=== PATIENT | male | born 1930 | race Caucasian/White ===

== ENCOUNTER 2016-07-20 16:53 | Inpatient (IN) | payer OTHER ==
[2016-07-19 20:35] VITALS: BP 197/81
[~2016-07-20] VITALS: Ht 175.3 cm; Wt 93.8 kg
--- NOTE | ~2016-07-20 | 2DMMODE ---
[facility] [address] [place] [address] 2 D/M-MODE ECHOCARDIOGRAM Name: TAJ MARTINEZ Room #: 422-P [facility] M.R.#: [id number] Admission: 07/20/16 Attend Phys: Anthony Huston Discharge: Date of : 34 Date of Service: 07/21/16 1000 Report #: [id number] THIS REPORT FOR: //name// Transthoracic Echocardiography Ordering physician: Pallavi Coello Referring physician: Anuel Shaffer [employer] Professor Of [employer]ostatistics: Indications/History: SOA. BP: 111 / HR: 71bpm Height: 69in Weight: 205.6lb 70 Study data: M-mode, complete 2D, complete spectral Doppler, and color Doppler. Location: Bedside. Routine. Image quality was adequate. The study was technically limited due to poor patient compliance, restricted patient mobility, and body habitus. No measurements were obtainable.The parasternal window was low, thus no M-mode measurements were recorded. Intravenous contrast (Definity) was administered. 2D measurements Normal Normal LVID ED 36-57 IVS ED 6-11 LVID ES 23-40 LVPW ED 6-11 LA volume index 16-28 AoRoot diam ED 21-37 LVOT diameter 18-23 Findings: Left ventricle: The cavity size was normal. Wall thickness was normal. Systolic function was normal. The estimated ejection fraction was in the range of 60% to 65%. Wall motion was normal. Right ventricle: The cavity size was normal. Systolic function was normal. Right atrium: The atrium was normal in size. Left atrium: The atrium was normal in size. Aortic valve: Structurally normal valve. Doppler: [address] [address] 2 D/M-MODE ECHOCARDIOGRAM Name: TAJ MARTINEZ Room #: 422-P [facility] IN M.R.#: [id number] Admission: 07/20/16 Attend Phys: Anthony Huston Discharge: Date of : 34 Date of Service: 07/21/16 1000 Report #: [id number] There was no stenosis. No regurgitation. Peak velocity: 132cm/s (S). Mitral valve: Structurally normal valve. Doppler: There was no evidence for stenosis. No regurgitation. Peak E-wave velocity: 82.2cm/s. Peak gradient: 2.7mm Hg (D). Peak A-wave velocity: 78.4cm/s. Tricuspid valve: Structurally normal valve. Doppler: There was no evidence for stenosis. Trivial regurgitation. Regurgitant peak velocity: 266.4cm/s. Peak RV-RA gradient: 28mm Hg (S). Pulmonic valve: Structurally normal valve. Doppler: There was no evidence for stenosis. No regurgitation. Pericardium: There was no pericardial effusion. Aorta: Aortic root: The aortic root was normal in size. Pulmonary artery: Systolic pressure was estimated to be 28mm Hg. Plus the right atrial pressure. Diastolic function: Doppler parameters are consistent with abnormal left ventricular relaxation (grade 1 diastolic dysfunction). Systemic veins: Inferior vena cava: Not visualized. The vessel was normal in size; the respirophasic diameter changes were in the normal range (= 50%). Conclusions 1. Left ventricle: Systolic function was normal. The estimated ejection fraction was in the range of 60% to 65%. Wall motion was normal. 2. Aortic valve: Structurally normal valve. There was no stenosis. No regurgitation. 3. Mitral valve: Structurally normal valve. No regurgitation. 4. Pulmonary arteries: Systolic pressure was estimated to be 28mm Hg. Plus the right atrial pressure. 5. Pericardium, extracardiac: There was no pericardial effusion. <ELECTRONICALLY SIGNED> By: Karri Abraham MD, FACC 07/21/16 1204 1000 1204 Karri Abraham MD, FACC /jrei
[2016-07-20 21:00] LABS: ABG SAMPLE TYPE ARTERIAL; BE(vivo) -2.3 mmol/L (-2 to +3); HCO3 23.9 mmol/L (22.0-26.0); LACTATE 0.74 mmol/L (0.5-2.0); O2(CT) 17.1 mL/dL (15.0-23.0); O2Hb 98.2 % (92.0-98.0); PCO2 46.7 mmHg (35.0-45.0); PO2 146.9 mmHg (80.0-100.0); STICK SITE R.RADIAL; pH 7.327 (7.360-7.450); sO2 98.7 % (92.0-98.0); tCO2 25.3 mmol/L (24.0-30.0)
[2016-07-20 21:41] LABS: ALBUMIN 3.5 g/dL (3.4-5.0); CALCIUM 8.9 mg/dL (8.5-10.1); CREATININE 0.9 mg/dL (0.6-1.3); POTASSIUM 5.1 mmol/L (3.5-5.1); TOTAL BILIRUBIN 0.3 mg/dL (<0.1-1.0); TOTAL PROTEIN 6.8 g/dL (6.4-8.2)
[2016-07-20 22:16] LABS: HEMATOCRIT 37.3 % (42.0-52.0); HEMOGLOBIN 11.9 gm/dL (14.0-18.0); MCH 28.7 pg (26.0-34.0); MCV 89.9 fL (80.0-100.0); RBC 4.16 mil/uL (4.50-6.00); RDW 15.1 % (10.5-14.5); WBC 6.4 thou/uL (4.0-11.0)
[2016-07-20] MEDS ORDERED: ARICEPT 5 MG TAB5 MG PO (23:25)
[2016-07-20] MEDS ORDERED: ASPIR 8181 MG PO (23:27)
[2016-07-20] MEDS ORDERED: DONEPEZIL HCL10 MG PO (23:28)
[2016-07-20] MEDS ORDERED: DICLOFENAC SODI75 MG PO (23:28)
[2016-07-20] MEDS ORDERED: LEXAPRO 10 MG T10 M1 PO (23:30)
[2016-07-20] MEDS ORDERED: SEROQUEL 25 MG25 M1 PO (23:31)
[2016-07-20] MEDS ORDERED: NAMENDA 10 MG T10 MG PO (23:33)
[2016-07-20] MEDS ORDERED: VITAMIN E400 UNIT PO (23:42)
[2016-07-20] MEDS ORDERED: TYLENOL325 MG PO (23:42)
[2016-07-20] MEDS ORDERED: CEREFOLIN NAC1 EAC1 PO (23:43)
[2016-07-21] VITALS (7 sets, daily range): BP systolic 111–186; BP diastolic 65–146
[2016-07-21 02:02] LABS: URINE BILIRUBIN NEGATIVE (Negative); URINE BLOOD TRACE (Negative); URINE COLOR YELLOW; URINE GLUCOSE-RANDOM* NEGATIVE (Negative); URINE KETONES NEGATIVE (Negative); URINE LEUKOCYTES-REFLEX NEGATIVE (Negative); URINE PROTEIN (DIPSTICK) NEGATIVE (Negative); URINE SPECIFIC GRAVITY 1.025 (1.003-1.035); URINE UROBILINOGEN 0.2 E.U./dl (0.2-1.0)
[2016-07-21 04:47] LABS: HEMATOCRIT 32.7 % (42.0-52.0); MCH 29.4 pg (26.0-34.0); MCHC 33.5 % (28.0-37.0); MCV 87.7 fL (80.0-100.0); RBC 3.73 mil/uL (4.50-6.00); RDW 15.1 % (10.5-14.5); WBC 6.6 thou/uL (4.0-11.0)
[2016-07-21 05:12] LABS: ALBUMIN 3.2 g/dL (3.4-5.0); ALKALINE PHOSPHATASE 117 U/L (46-116); ANION GAP 6 mmol/L (7-16); BUN 32 mg/dL (7-18); CALCIUM 8.8 mg/dL (8.5-10.1); CHLORIDE 106 mmol/L (98-107); CO2 28 mmol/L (21-32); CREATININE 0.9 mg/dL (0.6-1.3); GLUCOSE 77 mg/dL (70-99); NT-PRO BRAIN NAT PEPTIDE 172 pg/mL (<300); SGOT 14 U/L (15-37); SGPT 16 U/L (30-65); SODIUM 140 mmol/L (136-145); TOTAL BILIRUBIN 0.4 mg/dL (<0.1-1.0); TOTAL PROTEIN 6.2 g/dL (6.4-8.2); TROPONIN-I < 0.04 ng/mL (<0.04-0.07)
[2016-07-21 11:13] LABS: TSH 4.57 uIU/mL (0.450-4.500)
[2016-07-22 04:30] VITALS: BP 114/82
[2016-07-22 05:14] LABS: HEMATOCRIT 31.5 % (42.0-52.0); HEMOGLOBIN 10.6 gm/dL (14.0-18.0); MCH 29.5 pg (26.0-34.0); MCHC 33.7 % (28.0-37.0); MCV 87.6 fL (80.0-100.0); RBC 3.6 mil/uL (4.50-6.00); RDW 14.9 % (10.5-14.5); WBC 5.7 thou/uL (4.0-11.0)
[2016-07-22 05:28] LABS: ALBUMIN 3.1 g/dL (3.4-5.0); CALCIUM 8.8 mg/dL (8.5-10.1); CREATININE 1.2 mg/dL (0.6-1.3); PHOSPHORUS 3.9 mg/dL (2.5-4.9); POTASSIUM 4.9 mmol/L (3.5-5.1)
[2016-07-22 07:51] VITALS: BP 152/73
[2016-07-22 16:03] VITALS: BP 146/76
[2016-07-22 20:00] VITALS: BP 164/112
[2016-07-22 21:20] VITALS: BP 160/57
[2016-07-23 04:00] VITALS: BP 167/77
[2016-07-23 04:53] LABS: HEMOGLOBIN 10.1 gm/dL (14.0-18.0); MCH 29.5 pg (26.0-34.0); MCHC 33.7 % (28.0-37.0); MCV 87.4 fL (80.0-100.0); RBC 3.43 mil/uL (4.50-6.00); RDW 14.5 % (10.5-14.5); WBC 5.3 thou/uL (4.0-11.0)
[2016-07-23 05:11] LABS: CALCIUM 8.7 mg/dL (8.5-10.1); CREATININE 1.4 mg/dL (0.6-1.3); PHOSPHORUS 4.2 mg/dL (2.5-4.9); POTASSIUM 4.5 mmol/L (3.5-5.1)
[2016-07-23 07:25] VITALS: BP 160/67
[2016-07-23 16:06] VITALS: BP 170/83
[2016-07-24 04:00] VITALS: BP 215/93
[2016-07-24 05:53] VITALS: BP 162/81
[2016-07-24 08:31] VITALS: BP 135/75
[2016-07-24 13:00] LABS: ABG SAMPLE TYPE ARTERIAL; BE(vivo) 2.3 mmol/L (-2 to +3); HCO3 26.6 mmol/L (22.0-26.0); LACTATE 1.03 mmol/L (0.5-2.0); O2(CT) 16.1 mL/dL (15.0-23.0); O2Hb 96.3 % (92.0-98.0); PCO2 40.4 mmHg (35.0-45.0); PO2 93.2 mmHg (80.0-100.0); STICK SITE R.RADIAL; pH 7.437 (7.360-7.450); sO2 97.4 % (92.0-98.0); tCO2 27.9 mmol/L (24.0-30.0)
[2016-07-24 16:11] VITALS: BP 140/84
[2016-07-24 20:00] VITALS: BP 157/70
[2016-07-25 03:37] LABS: URINE BILIRUBIN NEGATIVE (Negative); URINE BLOOD NEGATIVE (Negative); URINE COLOR YELLOW; URINE GLUCOSE-RANDOM* NEGATIVE (Negative); URINE KETONES NEGATIVE (Negative); URINE LEUKOCYTES-REFLEX NEGATIVE (Negative); URINE PROTEIN (DIPSTICK) NEGATIVE (Negative); URINE UROBILINOGEN 0.2 E.U./dl (0.2-1.0)
[2016-07-25 04:42] VITALS: BP 131/42
[2016-07-25 06:53] LABS: HEMATOCRIT 34.1 % (42.0-52.0); HEMOGLOBIN 11.3 gm/dL (14.0-18.0); MCH 29.1 pg (26.0-34.0); MCHC 33.1 % (28.0-37.0); MCV 87.9 fL (80.0-100.0); RBC 3.88 mil/uL (4.50-6.00); RDW 14.2 % (10.5-14.5); WBC 8.3 thou/uL (4.0-11.0)
[2016-07-25 07:22] LABS: CALCIUM 9.1 mg/dL (8.5-10.1); CREATININE 1.2 mg/dL (0.6-1.3); POTASSIUM 3.8 mmol/L (3.5-5.1)
[2016-07-25 07:47] VITALS: BP 114/63
[2016-07-25] MEDS ORDERED: LEVAQUIN 500 M500 M2 PO (13:03)
[2016-07-25] MEDS ORDERED: PROBIOTIC1 EAC1 PO (13:03)
[2016-07-25] MEDS ORDERED: DUONEB 2.5-0.5 M3 ML INH (13:03)
[2016-07-25] MEDS ORDERED: NEBULIZER MISCELL (13:11)
[2016-07-25 16:09] VITALS: BP 123/67
[2016-07-25 17:11] VITALS: BP 175/146
== END 2016-07-26 01:37 | disposition home health service (06) | DRG 177 ==
LOC: 4E 16:53
PROVIDERS: Family Medicine; Hospitalist; Nurse Practitioner
DX: J69.0 Pneumonitis due to inhalation of food and vomit (principal); N17.0 Acute kidney failure with tubular necrosis; I10 Essential (primary) hypertension; G20 Parkinson's disease; F03.90 Unspecified dementia, unspecified severity, without behavioral disturbance, psychotic disturbance, mood disturbance, and anxiety; M19.90 Unspecified osteoarthritis, unspecified site; Z96.651 Presence of right artificial knee joint; I73.9 Peripheral vascular disease, unspecified; Z79.899 Other long term (current) drug therapy; Z88.6 Allergy status to analgesic agent; Z86.73 Personal history of transient ischemic attack (TIA), and cerebral infarction without residual deficits; Z79.82 Long term (current) use of aspirin; I50.9 Heart failure, unspecified
CPT/HCPCS: 10183